=== PATIENT | male | born 1995 | race Two or more races ===

== ENCOUNTER 2024-05-31 00:52 | Emergency (ER) | payer OTHER ==
[~2024-05-31] VITALS: Ht 162.6 cm; Wt 61.2 kg
[2024-05-31] MEDS ORDERED: METHYLPREDNISOLONE SOD SUCC 125 MG VIAL IV STA (01:12)
[2024-05-31] MEDS ORDERED: IPRATROPIUM/ALBUTEROL SULFATE 3 ML AMPUL.NEB IH STA (01:13)
[2024-05-31 01:34] LABS: HEMOGLOBIN 15.8 g/dL (13-16.00); MEAN CELL VOLUME 88.8 fL (80.0-100.00); MEAN CORPUSCULAR HEMOGLOBIN 31.1 pg (27.00-32.0); PLATELET COUNT 154 K/uL (150-450); RED BLOOD COUNT 5.07 M/uL (4.00-6.00); RED CELL DISTRIBUTION WIDTH 13.1 % (11.5-14.5)
[2024-05-31] MEDS ORDERED: IPRATROPIUM/ALBUTEROL SULFATE 3 ML AMPUL.NEB IH ONE (02:48)
[2024-05-31 03:00] LABS: COVID-19 AG NEGATIVE (NEGATIVE)
[2024-05-31 03:26] LABS: INFLUENZA A AG NEGATIVE (NEGATIVE)
== END 2024-05-31 03:49 | disposition home or self-care (01) ==
LOC: ER 00:52
DX: J45.909 Unspecified asthma, uncomplicated (principal); Z20.822 Contact with and (suspected) exposure to COVID-19